=== PATIENT | male | born 1940 | race Caucasian/White ===

== ENCOUNTER 2018-08-18 05:54 | Inpatient (IN) ==
[2018-08-18] MEDS ORDERED: VANCOMYCIN INJ 1,000 MG in SODIUM CHLORIDE 0.9% 250 ML IV ONE (06:00)
[2018-08-18] MEDS ORDERED: ceFAZolin 1,000 MG in SYRINGE 1 EACH IV ONE (06:00)
[2018-08-18] MEDS ORDERED: VANCOMYCIN 1,000 MG VIAL ONE (06:03)
[2018-08-18] MEDS ORDERED: ceFAZolin 1,000 MG VIAL ONE (06:03)
[2018-08-18] MEDS ORDERED: BUPIVACAINE SPINAL 0.75% 2 ML AMP SPINAL ONE (06:19)
[2018-08-18] MEDS ORDERED: PHENYLEPHRINE DRIP 20 MG/250 ML PREMIX IV ONE (06:19)
[2018-08-18] MEDS ORDERED: PROPOFOL 500 MG/50 ML BOTTLE IV ONE (06:19)
[2018-08-18] MEDS ORDERED: LACTATED RINGERS 1,000 ML IV SCH (06:30)
[2018-08-18] MEDS ORDERED: PROMETHAZINE 25 MG/1 ML VIAL IM PRN (07:16)
[2018-08-18] MEDS ORDERED: LACTULOSE 20 GM/30 ML UDCUP PO PRN (07:16)
[2018-08-18] MEDS ORDERED: TEMAZEPAM 7.5 MG CAPSULE PO PRN (07:16)
[2018-08-18] MEDS ORDERED: BISACODYL 10 MG SUPP RECTAL PRN (07:16)
[2018-08-18] MEDS ORDERED: MORPHINE 4 MG/1 ML VIAL IV PRN (07:16)
[2018-08-18] MEDS ORDERED: diphenhydrAMINE CAP 25 MG CAPSULE PO PRN (07:16)
[2018-08-18] MEDS ORDERED: TRANEXAMIC ACID 1,000 MG/10 ML VIAL ONE (07:53)
[2018-08-18] MEDS ORDERED: ROPIVACAINE 0.5% 30 ML VIAL ONE (09:04)
[2018-08-18] MEDS ORDERED: EPINEPHrine 1 MG/ML VIAL ONE (09:13)
[2018-08-18] MEDS ORDERED: BUPIVACAINE 0.5% 50 ML VIAL ONE (09:13)
[2018-08-18] MEDS ORDERED: PNEUMOCOCCAL VACCINE (13 VALENT) 0.5 ML SYRINGE IM ONE (10:37)
[2018-08-18] MEDS: DOCUSATE SODIUM 100 MG CAPSULE PO SCH ×2 (11:29→20:55)
[2018-08-18] MEDS ORDERED: PROPOFOL 200 MG/20 ML VIAL IV ONE (12:34)
[2018-08-18] MEDS ORDERED: MIDAZOLAM 2 MG/2 ML VIAL ONE (12:34)
[2018-08-18] MEDS ORDERED: fentaNYL 100 MCG/2 ML VIAL ONE (12:34)
[2018-08-18] MEDS ORDERED: DESFLURANE 1 UNIT/15 MINUTE INH ONE (12:34)
[2018-08-18] MEDS ORDERED: ACETAMINOPHEN 1,000 MG/100 ML VIAL IV ONE (12:35)
[2018-08-18] MEDS ORDERED: PHENYLEPHRINE 1 MG/10 ML SYRINGE IV ONE (12:35)
[2018-08-18] MEDS ORDERED: ROCURONIUM 100 MG/10 ML VIAL IV ONE (12:35)
[2018-08-18] MEDS ORDERED: NEOSTIGMINE 10 MG/10 ML VIAL ONE (12:35)
[2018-08-18] MEDS ORDERED: KETAMINE 500 MG/10 ML VIAL ONE (12:35)
[2018-08-18] MEDS ORDERED: GLYCOPYRROLATE 0.4 MG/2 ML VIAL ONE (12:35)
[2018-08-18] MEDS ORDERED: LACTATED RINGERS 1,000 ML IV ONE (12:35)
[2018-08-18] MEDS: ceFAZolin 2,000 MG in PREMIX 1 EACH IV SCH ×2 (14:18→21:45)
[2018-08-18] MEDS: ONDANSETRON 4 MG/2 ML VIAL IV PRN ×2 (15:19→20:50)
[2018-08-18] MEDS: ROSUVASTATIN 10 MG TABLET PO SCH (20:51)
[2018-08-18] MEDS: ALPRAZolam 0.5 MG TABLET PO SCH (20:51)
[2018-08-18] MEDS: ASPIRIN EC 81 MG TABLET PO SCH (20:51)
[2018-08-18] MEDS: MELOXICAM 7.5 MG TABLET PO SCH (20:52)
[2018-08-18] MEDS: TAMSULOSIN 0.4 MG CAPSULE PO SCH (20:53)
[2018-08-18] MEDS: CALCIUM (CARBONATE)/VITAMIN D 500 MG-200 UNIT TABLET PO SCH (20:54)
[2018-08-18] MEDS: BICALUTAMIDE 50 MG TABLET PO SCH (20:54)
[2018-08-18] MEDS: TAMOXIFEN 10 MG TABLET PO SCH (20:54)
[2018-08-18] MEDS: amLODIPine 5 MG TABLET PO SCH (20:55)
[2018-08-18] MEDS: PANTOPRAZOLE 40 MG TABLET PO SCH (20:55)
[2018-08-19 05:05] LABS: Basophils % 0.2 % (0.0-0.8); Hematocrit 28.1 VOL% (42.0-52.0); Hemoglobin 9.5 GM/DL (14.0-18.0); Immature Granulocytes % 0.6 %; Immature Granulocytes Absolute 0.08 #; Lymphocytes # 2.3 10*3/uL (1.4-4.0); Lymphocytes % 18.2 % (21.2-54.2); Mean Corpuscular HGB Conc 33.8 GM/DL (32-36); Mean Corpuscular Hemoglobin 30 PG (27-34); Mean Corpuscular Volume 90.1 FL (87-102); Mean Platelet Volume 9.6 FL (9.6-12.0); Monocytes # 1.2 10*3/uL (0.11-0.8); Monocytes % 9.7 % (1.7-12.7); Neutrophils # 8.9 10*3/uL (1.4-7.4); Neutrophils % 71.3 % (38.7-73.9); Platelet Count 176 T/CUMM (130-400); Red Blood Count 3.12 MC/CUMM (3.8-5.5); Red Cell Distribution Width 12.2 % (9.3-17.3); White Blood Count 12.5 T/CUMM (4-12)
[2018-08-19 05:27] LABS: Calcium 8.6 MG/DL (8.5-10.1); Osmolality,Calculated 278.7 MOS/KG (273-304); Potassium 4.6 MMOL/L (3.5-5.1)
[2018-08-19] MEDS: MULTIVITAMIN (INTRINSIC) CAPSULE PO SCH (09:30)
[2018-08-19] MEDS: DOCUSATE SODIUM 100 MG CAPSULE PO SCH ×2 (09:30→20:41)
[2018-08-19] MEDS: MAGNESIUM HYDROXIDE SUSP 30 ML UDCUP PO PRN (13:47)
[2018-08-19] MEDS ORDERED: FONDAPARINUX 2.5 MG/0.5 ML SYRINGE SUBCUT SCH (20:00)
[2018-08-19] MEDS: BICALUTAMIDE 50 MG TABLET PO SCH (20:40)
[2018-08-19] MEDS: ROSUVASTATIN 10 MG TABLET PO SCH (20:40)
[2018-08-19] MEDS: TAMOXIFEN 10 MG TABLET PO SCH (20:41)
[2018-08-19] MEDS: ALPRAZolam 0.5 MG TABLET PO SCH (20:41)
[2018-08-19] MEDS: amLODIPine 5 MG TABLET PO SCH (20:42)
[2018-08-19] MEDS: PANTOPRAZOLE 40 MG TABLET PO SCH (20:43)
[2018-08-19] MEDS: MELOXICAM 7.5 MG TABLET PO SCH (20:43)
[2018-08-19] MEDS: CALCIUM (CARBONATE)/VITAMIN D 500 MG-200 UNIT TABLET PO SCH (20:43)
[2018-08-19] MEDS: TAMSULOSIN 0.4 MG CAPSULE PO SCH (20:43)
[2018-08-19] MEDS: ASPIRIN EC 81 MG TABLET PO SCH (20:44)
[2018-08-19] MEDS: ONDANSETRON 4 MG/2 ML VIAL IV PRN (20:45)
[2018-08-20 05:05] LABS: Basophils % 0.3 % (0.0-0.8); Eosinophils # 0.1 10*3/uL (0.0-0.87); Eosinophils % 0.4 % (0.00-10.9); Hematocrit 26.6 VOL% (42.0-52.0); Immature Granulocytes % 0.6 %; Immature Granulocytes Absolute 0.08 #; Lymphocytes # 3.5 10*3/uL (1.4-4.0); Lymphocytes % 24.8 % (21.2-54.2); Mean Corpuscular HGB Conc 33.8 GM/DL (32-36); Mean Corpuscular Hemoglobin 30 PG (27-34); Mean Corpuscular Volume 89.9 FL (87-102); Mean Platelet Volume 9.8 FL (9.6-12.0); Monocytes # 1.6 10*3/uL (0.11-0.8); Neutrophils # 8.8 10*3/uL (1.4-7.4); Neutrophils % 62.9 % (38.7-73.9); Platelet Count 151 T/CUMM (130-400); Red Blood Count 2.96 MC/CUMM (3.8-5.5); Red Cell Distribution Width 12.4 % (9.3-17.3)
[2018-08-20] MEDS: MULTIVITAMIN (INTRINSIC) CAPSULE PO SCH (09:20)
[2018-08-20] MEDS: DOCUSATE SODIUM 100 MG CAPSULE PO SCH (09:20)
[2018-08-20] MEDS: MAGNESIUM HYDROXIDE SUSP 30 ML UDCUP PO PRN (09:20)
[2018-08-20] MEDS: ONDANSETRON 4 MG/2 ML VIAL IV PRN (11:50)
[2018-08-20 12:40] VITALS: BP 132/58
== END 2018-08-20 13:40 | DRG 470 ==
LOC: N.SDSINP 05:54 → N.3E 10:20
PROVIDERS: ADMIT Orthopaedic Surgery; ATTEND Orthopaedic Surgery

== ENCOUNTER 2020-05-02 05:54 | Inpatient (IN) ==
[2020-05-02] MEDS ORDERED: BUPIVACAINE SPINAL 0.75% 2 ML AMP SPINAL ONE (06:30)
[2020-05-02] MEDS ORDERED: ceFAZolin 1,000 MG in SYRINGE 1 EACH IV ONE (06:30)
[2020-05-02] MEDS ORDERED: LACTATED RINGERS 1,000 ML IV SCH (06:30)
[2020-05-02] MEDS ORDERED: VANCOMYCIN INJ 1,000 MG in SODIUM CHLORIDE 0.9% 250 ML IV ONE (06:30)
[2020-05-02] MEDS ORDERED: ACETAMINOPHEN 500 MG TABLET PO ONE (06:32)
[2020-05-02] MEDS ORDERED: GABAPENTIN 400 MG CAPSULE PO ONE (06:32)
[2020-05-02] MEDS ORDERED: ROPIVACAINE 0.5% 30 ML VIAL ONE (06:43)
[2020-05-02] MEDS ORDERED: DEXAMETHASONE 4 MG/1 ML VIAL ONE ×2 (06:43→07:27)
[2020-05-02] MEDS ORDERED: MIDAZOLAM 2 MG/2 ML VIAL ONE (06:43)
[2020-05-02] MEDS ORDERED: fentaNYL 100 MCG/2 ML VIAL ONE (06:43)
[2020-05-02] MEDS ORDERED: LIDOCAINE 2% 5 ML VIAL ONE ×2 (06:43→07:27)
[2020-05-02] MEDS ORDERED: GLYCOPYRROLATE 0.4 MG/2 ML VIAL ONE ×2 (06:46→07:57)
[2020-05-02] MEDS ORDERED: PROMETHAZINE 25 MG/1 ML VIAL IM PRN (07:11)
[2020-05-02] MEDS ORDERED: ONDANSETRON 4 MG/2 ML VIAL IV PRN ×2 (07:11→08:43)
[2020-05-02] MEDS ORDERED: MORPHINE 4 MG/1 ML VIAL IV PRN ×2 (07:11→07:46)
[2020-05-02] MEDS ORDERED: diphenhydrAMINE CAP 25 MG CAPSULE PO PRN (07:11)
[2020-05-02] MEDS ORDERED: TEMAZEPAM 7.5 MG CAPSULE PO PRN (07:11)
[2020-05-02] MEDS ORDERED: BISACODYL 10 MG SUPP RECTAL PRN (07:11)
[2020-05-02] MEDS ORDERED: ETOMIDATE 40 MG/20 ML VIAL IV ONE (07:27)
[2020-05-02] MEDS ORDERED: propofoL 200 MG/20 ML VIAL IV ONE (07:27)
[2020-05-02] MEDS ORDERED: ONDANSETRON 4 MG/2 ML VIAL ONE (07:27)
[2020-05-02] MEDS ORDERED: PHENYLEPHRINE 1 MG/10 ML SYRINGE IV ONE (07:27)
[2020-05-02] MEDS ORDERED: SUCCINYLCHOLINE 200 MG/10 ML VIAL ONE (07:27)
[2020-05-02] MEDS ORDERED: ROCURONIUM 50 MG/5 ML VIAL IV ONE (07:28)
[2020-05-02] MEDS ORDERED: TRANEXAMIC ACID 1,000 MG/10 ML VIAL ONE (07:50)
[2020-05-02] MEDS ORDERED: SODIUM CHLORIDE 0.9% 100 ML IV ONE (07:51)
[2020-05-02] MEDS ORDERED: NEOSTIGMINE 10 MG/10 ML VIAL ONE (07:58)
[2020-05-02] MEDS ORDERED: SEVOFLURANE 1 UNIT/15 MINUTE INH ONE (08:21)
[2020-05-02] MEDS ORDERED: LACTATED RINGERS 1,000 ML IV ONE (08:21)
[2020-05-02] MEDS ORDERED: PROMETHAZINE INJ 25 MG in SODIUM CHLORIDE 0.9% 50 ML IV PRN (08:43)
[2020-05-02] MEDS ORDERED: diphenhydrAMINE 50 MG/1 ML VIAL IV PRN (08:43)
[2020-05-02] MEDS: HYDROmorphone 2 MG/1 ML VIAL IV PRN ×4 (08:45→09:00)
[2020-05-02] MEDS: PANTOPRAZOLE 20 MG TABLET PO SCH ×2 (13:46→21:06)
[2020-05-02] MEDS: ceFAZolin 2,000 MG in PREMIX 1 EACH IV SCH ×2 (14:21→22:02)
[2020-05-02] MEDS: BICALUTAMIDE 50 MG TABLET PO SCH (16:58)
[2020-05-02] MEDS: FUROSEMIDE 20 MG TABLET PO SCH (16:59)
[2020-05-02] MEDS: DOCUSATE SODIUM 100 MG CAPSULE PO SCH (21:05)
[2020-05-02] MEDS: MELOXICAM 7.5 MG TABLET PO SCH (21:05)
[2020-05-02] MEDS: CALCIUM (CARBONATE)/VITAMIN D 500 MG-200 UNIT TABLET PO SCH (21:06)
[2020-05-02] MEDS: TAMOXIFEN 10 MG TABLET PO SCH (21:06)
[2020-05-02] MEDS: ROSUVASTATIN 10 MG TABLET PO SCH (21:06)
[2020-05-02] MEDS: ASPIRIN EC 81 MG TABLET PO SCH (21:06)
[2020-05-02] MEDS: FONDAPARINUX 2.5 MG/0.5 ML SYRINGE SUBCUT SCH (21:06)
[2020-05-02] MEDS: ALPRAZolam 0.5 MG TABLET PO PRN (21:06)
[2020-05-03 07:56] LABS: Basophils % 0.1 % (0.0-0.8); Hematocrit 28.1 VOL% (42.0-52.0); Hemoglobin 9.8 GM/DL (14.0-18.0); Immature Granulocytes % 0.6 %; Lymphocytes # 3.3 10*3/uL (1.4-4.0); Lymphocytes % 19.5 % (21.2-54.2); Mean Corpuscular HGB Conc 34.9 GM/DL (32-36); Mean Corpuscular Volume 88.9 FL (87-102); Mean Platelet Volume 9.5 FL (9.6-12.0); Monocytes % 10.4 % (1.7-12.7); Neutrophils % 69.4 % (38.7-73.9); Platelet Count 158 T/CUMM (130-400); Red Blood Count 3.16 MC/CUMM (3.8-5.5); Red Cell Distribution Width 12.2 % (9.3-17.3); White Blood Count 16.9 T/CUMM (4-12)
[2020-05-03 08:26] LABS: Calcium 8.5 MG/DL (8.5-10.1); Osmolality,Calculated 289.1 MOS/KG (273-304)
[2020-05-03] MEDS: MELOXICAM 7.5 MG TABLET PO SCH ×2 (09:16→21:24)
[2020-05-03] MEDS: DOCUSATE SODIUM 100 MG CAPSULE PO SCH ×2 (09:16→21:24)
[2020-05-03] MEDS: FUROSEMIDE 20 MG TABLET PO SCH (09:16)
[2020-05-03] MEDS: BICALUTAMIDE 50 MG TABLET PO SCH (09:17)
[2020-05-03] MEDS: PANTOPRAZOLE 20 MG TABLET PO SCH ×2 (09:17→21:24)
[2020-05-03] MEDS: FERROUS GLUCONATE 240 MG TABLET PO SCH (09:23)
[2020-05-03 10:08] LABS: Basophils # 0.1 10*3/uL (0.0-0.2); Basophils % 0.2 % (0.0-0.8); Hematocrit 28.5 VOL% (42.0-52.0); Hemoglobin 10.1 GM/DL (14.0-18.0); Immature Granulocytes % 0.6 %; Immature Granulocytes Absolute 0.14 #; Lymphocytes # 9.2 10*3/uL (1.4-4.0); Lymphocytes % 36.6 % (21.2-54.2); Mean Corpuscular HGB Conc 35.4 GM/DL (32-36); Mean Corpuscular Volume 88.5 FL (87-102); Mean Platelet Volume 9.6 FL (9.6-12.0); Monocytes % 10.1 % (1.7-12.7); Neutrophils % 52.5 % (38.7-73.9); Platelet Count 177 T/CUMM (130-400); Red Blood Count 3.22 MC/CUMM (3.8-5.5); Red Cell Distribution Width 12.4 % (9.3-17.3)
[2020-05-03 10:27] LABS: Hypochromasia 1+; Lymphocytes 40 % (20-55); Microcytosis 1+; Platelet Estimate Adequate; Segmented Neutrophils 54 % (50-85); Total Cells Counted 100
[2020-05-03 10:50] LABS: Troponin I < 0.015 NG/ML (0.00-0.045)
[2020-05-03 10:55] LABS: Calcium 8.6 MG/DL (8.5-10.1); Osmolality,Calculated 287.3 MOS/KG (273-304)
[2020-05-03] MEDS ORDERED: POTASSIUM CHLORIDE 20 MEQ TABLET PO ONE (14:55)
[2020-05-03] MEDS: FONDAPARINUX 2.5 MG/0.5 ML SYRINGE SUBCUT SCH (21:24)
[2020-05-03] MEDS: ASPIRIN EC 81 MG TABLET PO SCH (21:24)
[2020-05-03] MEDS: TAMOXIFEN 10 MG TABLET PO SCH (21:24)
[2020-05-03] MEDS: ROSUVASTATIN 10 MG TABLET PO SCH (21:24)
[2020-05-03] MEDS: ALPRAZolam 0.5 MG TABLET PO PRN (21:24)
[2020-05-03] MEDS: CALCIUM (CARBONATE)/VITAMIN D 500 MG-200 UNIT TABLET PO SCH (21:24)
[2020-05-04] MEDS: MELOXICAM 7.5 MG TABLET PO SCH ×2 (10:50→21:17)
[2020-05-04] MEDS: DOCUSATE SODIUM 100 MG CAPSULE PO SCH ×2 (10:51→21:17)
[2020-05-04] MEDS: PANTOPRAZOLE 20 MG TABLET PO SCH ×2 (10:51→21:18)
[2020-05-04] MEDS: BICALUTAMIDE 50 MG TABLET PO SCH (10:51)
[2020-05-04] MEDS: FERROUS GLUCONATE 240 MG TABLET PO SCH (10:55)
[2020-05-04] MEDS: MAGNESIUM HYDROXIDE SUSP 30 ML UDCUP PO PRN (18:09)
[2020-05-04] MEDS: ASPIRIN EC 81 MG TABLET PO SCH (21:17)
[2020-05-04] MEDS: CALCIUM (CARBONATE)/VITAMIN D 500 MG-200 UNIT TABLET PO SCH (21:17)
[2020-05-04] MEDS: ROSUVASTATIN 10 MG TABLET PO SCH (21:17)
[2020-05-04] MEDS: FONDAPARINUX 2.5 MG/0.5 ML SYRINGE SUBCUT SCH (21:18)
[2020-05-04] MEDS: TAMOXIFEN 10 MG TABLET PO SCH (21:18)
[2020-05-04 22:32] LABS: Bilirubin,Urine Negative (Negative); Blood, Urine Negative (Negative); Glucose,Urine (UA) Negative (Negative); Hyaline Casts,Urine 1 /LPF (0-3); Ketones,Urine Negative (Negative); Mucus,Urine Occasional /LPF (Occasional); Nitrite,Urine Negative (Negative); Protein,Urine Negative; RBC,Urine 2 /HPF (0-4); Squamous Epithelial Cell,Urine Occasional /HPF (0-10); Urine Appearance CLEAR (Clear); Urine Color Yellow (Yellow); Urine Specific Gravity 1.019 (1.001-1.035); Urine Urobilinogen < 2.0 EU/DL (0.2-1.0); WBC,Urine 1 /HPF (0-6)
[2020-05-05 06:20] LABS: Basophils # 0.1 10*3/uL (0.0-0.2); Basophils % 0.6 % (0.0-0.8); Eosinophils # 0.5 10*3/uL (0.0-0.87); Eosinophils % 4.5 % (0.00-10.9); Hematocrit 23.1 VOL% (42.0-52.0); Hemoglobin 8.1 GM/DL (14.0-18.0); Immature Granulocytes % 0.5 %; Immature Granulocytes Absolute 0.05 #; Lymphocytes # 2.6 10*3/uL (1.4-4.0); Mean Corpuscular HGB Conc 35.1 GM/DL (32-36); Mean Corpuscular Volume 90.2 FL (87-102); Mean Platelet Volume 10.2 FL (9.6-12.0); Neutrophils % 60.4 % (38.7-73.9); Platelet Count 112 T/CUMM (130-400); Red Blood Count 2.56 MC/CUMM (3.8-5.5); Red Cell Distribution Width 12.3 % (9.3-17.3); White Blood Count 10.1 T/CUMM (4-12)
[2020-05-05] MEDS ORDERED: SODIUM CHLORIDE 0.9% 1,000 ML IV PRN (07:57)
[2020-05-05] MEDS: MELOXICAM 7.5 MG TABLET PO SCH ×2 (08:54→20:11)
[2020-05-05] MEDS: DOCUSATE SODIUM 100 MG CAPSULE PO SCH ×2 (08:54→20:11)
[2020-05-05] MEDS: BICALUTAMIDE 50 MG TABLET PO SCH (08:54)
[2020-05-05] MEDS: FERROUS GLUCONATE 240 MG TABLET PO SCH (08:55)
[2020-05-05] MEDS: MAGNESIUM HYDROXIDE SUSP 30 ML UDCUP PO PRN ×2 (08:56→23:15)
[2020-05-05] MEDS: PANTOPRAZOLE 20 MG TABLET PO SCH ×2 (08:56→20:11)
[2020-05-05] MEDS ORDERED: MAGNESIUM CITRATE 300 ML BOTTLE PO ONE (15:38)
[2020-05-05 20:01] LABS: Hematocrit 29.2 VOL% (42.0-52.0)
[2020-05-05 20:03] LABS: Hemoglobin 10.3 GM/DL (14.0-18.0)
[2020-05-05] MEDS: ROSUVASTATIN 10 MG TABLET PO SCH (20:10)
[2020-05-05] MEDS: ASPIRIN EC 81 MG TABLET PO SCH (20:10)
[2020-05-05] MEDS: FONDAPARINUX 2.5 MG/0.5 ML SYRINGE SUBCUT SCH (20:11)
[2020-05-05] MEDS: CALCIUM (CARBONATE)/VITAMIN D 500 MG-200 UNIT TABLET PO SCH (20:11)
[2020-05-05] MEDS: TAMOXIFEN 10 MG TABLET PO SCH (20:11)
[2020-05-06 07:57] LABS: Basophils # 0.1 10*3/uL (0.0-0.2); Basophils % 0.6 % (0.0-0.8); Eosinophils # 0.7 10*3/uL (0.0-0.87); Eosinophils % 6.9 % (0.00-10.9); Hematocrit 28.1 VOL% (42.0-52.0); Hemoglobin 9.8 GM/DL (14.0-18.0); Immature Granulocytes % 0.5 %; Immature Granulocytes Absolute 0.05 #; Lymphocytes # 2.1 10*3/uL (1.4-4.0); Lymphocytes % 21.6 % (21.2-54.2); Mean Corpuscular HGB Conc 34.9 GM/DL (32-36); Mean Corpuscular Volume 87.8 FL (87-102); Mean Platelet Volume 9.6 FL (9.6-12.0); Monocytes % 8.2 % (1.7-12.7); Neutrophils % 62.2 % (38.7-73.9); Platelet Count 128 T/CUMM (130-400); Red Cell Distribution Width 12.8 % (9.3-17.3); White Blood Count 9.7 T/CUMM (4-12)
[2020-05-06] MEDS: BICALUTAMIDE 50 MG TABLET PO SCH (09:10)
[2020-05-06] MEDS: FERROUS GLUCONATE 240 MG TABLET PO SCH (09:10)
[2020-05-06] MEDS: DOCUSATE SODIUM 100 MG CAPSULE PO SCH (09:10)
[2020-05-06] MEDS: PANTOPRAZOLE 20 MG TABLET PO SCH (09:11)
[2020-05-06] MEDS: MELOXICAM 7.5 MG TABLET PO SCH (09:11)
[2020-05-06 11:33] VITALS: BP 104/72
== END 2020-05-06 12:18 | disposition swing bed (61) | DRG 470 ==
LOC: N.OR 05:54 → N.SDSINP 05:57 → N.3E 09:51
PROVIDERS: ADMIT Orthopaedic Surgery; ATTEND Orthopaedic Surgery